=== PATIENT | male | born 1975 | race Caucasian/White ===

== ENCOUNTER 2016-11-28 20:45 | Emergency (ER) | payer BC ==
[2016-11-28 21:11] VITALS: BP 141/65; PULSE 80; RESP 20; TEMP 98.4
--- NOTE | 2016-11-28 21:57 | ED ---
Skin/Abscess/FB HPI - General Chief complaint: Skin/Abscess/Foreign Body Stated complaint: Lump on chest Time Seen by Provider: 11/28/16 21:36 Source: patient, RN notes reviewed Mode of arrival: ambulatory Limitations: no limitations - History of Present Illness Initial comments: 41 yo male presents to the ER with cc of bump to left chest wall. patient states he all of a sudden felt this pain to his chest and then noticed he had a bump to his chest wall. Patient points to it right over his sternum and rib attachemnt. Patient has not noticed this before. Patient states when he touches this point specific area free takes a deep breath he notices some increase discomfort. Patient states that he was concerned due to his pain is without that he should be evaluated patient denies any fever chills cough cold runny nose with this. Patient denies any nausea or vomiting. Patient states she was concerned due to the symptoms were thought that he should be evaluated. Patient denies any recent fever, chills, shortness of breath, chest pain, back pain, abdominal pain, nausea vomiting, numbness or tingling, dysuria or hematuria, constipation or diarrhea, headaches or visual changes, or any other current symptoms. - Related Data Previous Rx's Medication Instructions Recorded Ibuprofen [Motrin] 600 mg PO Q6HR PRN #20 tab 11/28/16 Allergies Allergy/AdvReac Type Severity Reaction Status Date / Time No Known Allergies Allergy Verified 11/28/16 21:11 Review of Systems ROS Statement: Those systems with pertinent positive or pertinent negative responses have been documented in the HPI. ROS Other: All systems not noted in ROS Statement are negative. Past Medical History Past Medical History: No Reported History History of Any Multi-Drug Resistant Organisms: None Reported Past Surgical History: Ear Surgery Past Psychological History: No Psychological Hx Reported Smoking Status: Light tobacco smoker Past Alcohol Use History: Occasional Past Drug Use History: None Reported General Exam Limitations: no limitations General appearance: alert, in no apparent distress Head exam: Present: atraumatic, normocephalic, normal inspection ENT exam: Present: normal exam, mucous membranes moist Neck exam: Present: normal inspection. Absent: tenderness, meningismus, lymphadenopathy Respiratory exam: Present: normal lung sounds bilaterally, chest wall tenderness (Directly over the sternum and costochondral connection in the lower third of the rib cage.). Absent: respiratory distress, wheezes, rales, rhonchi , stridor Cardiovascular Exam: Present: regular rate, normal rhythm, normal heart sounds. Absent: systolic murmur, diastolic murmur, rubs, gallop, clicks GI/Abdominal exam: Present: soft, normal bowel sounds. Absent: distended, tenderness, guarding, rebound, rigid Neurological exam: Present: alert, oriented X3 Psychiatric exam: Present: normal affect, normal mood Skin exam: Present: warm, dry, intact, normal color. Absent: rash Course Vital Signs 11/28/16 21:08 Temperature 98.4 F Pulse Rate 80 Respiratory 20 Rate Blood Pressure 141/65 O2 Sat by Pulse 98 Oximetry Medical Decision Making - Medical Decision Making 41-year-old male presents for chest wall tenderness area that is point tender to touch. At this time x-ray shows no acute process an ultrasound showing a bony prominence for the patient complains of discomfort. This time we discussed most likely costal chondral type pain. We discussed using Motrin as prescribed for pain. We discussed follow-up with his doctor return parameters. Patient stated that he understood and all his questions have been answered. He will be discharged home. - Radiology Data Radiology results: report reviewed, image reviewed Disposition Clinical Impression: Costochondral pain, Sprain of ribs, initial encounter Disposition: HOME SELF-CARE Condition: Stable Instructions: Costochondritis (ED) Additional Instructions: Please use medication as discussed. Please follow up with family doctor if symptoms have not improved over the next two days. Please return to the emergency room if your symptoms increase or worsen or for any other concerns. Prescriptions: Ibuprofen [Motrin] 600 mg PO Q6HR PRN #20 tab PRN Reason: Pain Referrals: None,Stated [Primary Care Provider] - 1-2 days Shadi Dao MD [STAFF PHYSICIAN] - 1-2 days Time of Disposition: 22:35
--- NOTE | 2016-11-28 22:13 | XR ---
EXAMINATION TYPE: XR chest 2V DATE OF EXAM: 11/28/2016 9:54 PM COMPARISON: 02/24/2015 INDICATION: Cough TECHNIQUE: 2 view chest FINDINGS: The heart size is normal. The pulmonary vasculature is normal. The lungs are clear. IMPRESSION: 1. No acute pulmonary process.
--- NOTE | 2016-11-29 00:04 | US ---
EXAM: US Soft Tissue. CLINICAL HISTORY: Reason: Pain TECHNIQUE: Real-time ultrasound of the soft tissue with image documentation. COMPARISON: No relevant prior studies available. FINDINGS: Targeted ultrasound of the area of clinical concern was performed. No solid or cystic mass is seen. No fluid collection is identified. IMPRESSION: Unremarkable targeted ultrasound of the chest wall. Clinical correlation is required to determine the need for further workup with CT imaging.
== END 2016-11-28 22:55 | disposition home or self-care (01) ==
LOC: EC 20:45
DX: S23.41XA Sprain of ribs, initial encounter (principal); R07.1 Chest pain on breathing; F17.200 Nicotine dependence, unspecified, uncomplicated; X58.XXXA Exposure to other specified factors, initial encounter
CPT/HCPCS: 71020; 99284

== ENCOUNTER → 2018-03-16 | Outpatient (CLI) | payer BC, OTHER ==
--- NOTE | 2018-03-16 17:24 | CONS ---
CONSULTATION DATE OF SERVICE: 03/16/2018 A 43-year-old gentleman has been evaluated in sleep center for possible obstructive sleep apnea-hypopnea syndrome. HISTORY OF PRESENT ILLNESS AND SLEEP-WAKE EVALUATION: Patient's usual sleep schedule on working days from around 11:00 p.m. until 5:00 a.m. and on weekends from around 11:00 p.m. until 8:00 a.m. Usually no problems with falling asleep. No TV in bedroom. Patient sleeps with his with severe snoring and witnessed episodes of stopped breathing during the sleep. The patient wakes up from sleep around 3 times with dry mouth, nocturia, sweating, episodes of gasping for air, sleep talking. In the morning, patient wakes up tired, falling asleep during the day, has episodes of irritability. [place] Sleepiness Scale increased significantly to 14. PAST MEDICAL HISTORY: Positive for left ear cholesteatoma treated surgically in 2006. MEDICATIONS: None. SOCIAL HISTORY: Positive for chewing tobacco. Alcohol consumption occasional. FAMILY HISTORY: Hypertension, heart problems, hyperlipidemia, arthritis, emphysema, sleep apnea, snoring, cancer, diabetes. REVIEW OF SYSTEMS: Loud snoring, awakenings from sleep, feeling tiredness during the day. PHYSICAL EXAMINATION: GENERAL A 43-year-old gentleman without distress. VITAL SIGNS BP 125/61, HR 67, RR 18, height 5 feet 11 inches, weight 341.8, BMI 47.6, temperature 97.7, oxygen saturation at room air 92%. HEENT PERRLA, EOMI, evaluation of oropharynx showed tongue protrudes midline, moderately low position of soft palate, wide neck, 20 inches in circumference. Neck Supple, no JVD. Thyroid is not palpable. LUNGS Clear to percussion and to auscultation. Good air exchange. No wheezing or rhonchi. HEART S1, S2 regular. No murmurs, gallops, or rubs. ABDOMEN Obese, soft and nontender. Bowel sounds are present. No organomegaly appreciated. EXTREMITIES No clubbing or cyanosis. PRODUCTION LEADER Awake, alert, and oriented X3. Cranial nerves 2 to 7 intact. There is no fasciculation or atrophy. noted. No focal deficits observed. IMPRESSION: 1. Loud snoring, witnessed episodes of stopped breathing during the sleep, excessive daytime sleepiness. [place] Sleepiness Scale increased to 14. Wide neck, 20 inches in circumference. Obstructive sleep apnea-hypopnea syndrome. 2. Obesity, BMI 47.6. 3. Status post a surgical treatment of cholesteatoma of left ear in 2006. 4. Tobacco chewer. PLAN: 1. Polysomnography for evaluation of patient's breathing during sleep. 2. CPAP/BiPAP titration if sleep study confirms obstructive sleep apnea-hypopnea syndrome. 3. Preferable position during sleep on the side. 4. No driving if patient feels any sleepiness. 5. I will see patient for follow up visit to explain results of testing and following plan. Derek Raman MD, PhD, FAASM Diplomat of [employer] Sand Mixer Machine of [facility] [place] MMODL / IJN: [id number] /
== END | disposition home or self-care (01) ==
LOC: SLEEP 14:26
PROVIDERS: ATTEND Internal Medicine
DX: G47.33 Obstructive sleep apnea (adult) (pediatric) (principal); R35.1 Nocturia; F17.200 Nicotine dependence, unspecified, uncomplicated; E66.9 Obesity, unspecified; Z68.42 Body mass index [BMI] 45.0-49.9, adult; Z98.890 Other specified postprocedural states; Z86.69 Personal history of other diseases of the nervous system and sense organs
CPT/HCPCS: 99211

== ENCOUNTER 2018-04-13 07:19 | Emergency (ER) | payer BC, OTHER ==
[2018-04-13 07:46] VITALS: RESP 18
--- NOTE | 2018-04-13 08:43 | ED ---
ENT HPI - General Chief complaint: ENT Stated complaint: Ear Pain Time Seen by Provider: 04/13/18 08:04 Source: patient, RN notes reviewed, old records reviewed Mode of arrival: ambulatory Limitations: no limitations - History of Present Illness Initial comments: Patient is a 43-year-old male presents emergency room today with 1 day of left- sided ear pain and swelling. Patient reports that he is felt that was a few days ago. He states that he thought that maybe something was in his ear. Patient reports that he feels like his ear swelling and closing off the ear canal. He denies using Q-tips or any other scratching of the ear. He has no trauma to the ear. He reports that he can still hear out of it. He denies any dizziness. He does state that he's had drainage coming from the ear canal. - Related Data Home Medications Medication Instructions Recorded Confirmed Ibuprofen [Motrin] 800 - 1,000 mg PO BID PRN 06/20/17 06/20/17 Previous Rx's Medication Instructions Recorded Ciprofloxacin HCl [Cipro] 500 mg PO Q12HR 7 Days tab 04/13/18 Ofloxacin 0.3% Otic Soln [Floxin 10 drops LEFT EAR BID #1 bottle 04/13/18 0.3% Otic Soln] methylPREDNISolone Dose Pack 4 mg PO DIRECTED #21 package 04/13/18 [Medrol Dose Pack] Allergies Allergy/AdvReac Type Severity Reaction Status Date / Time No Known Allergies Allergy Verified 04/13/18 07:44 Review of Systems ROS Statement: Those systems with pertinent positive or pertinent negative responses have been documented in the HPI. ROS Other: All systems not noted in ROS Statement are negative. Past Medical History Past Medical History: Pneumonia Additional Past Medical History / Comment(s): pneumonia as a kid History of Any Multi-Drug Resistant Organisms: None Reported Past Surgical History: Ear Surgery Past Anesthesia/Blood Transfusion Reactions: No Reported Reaction Past Psychological History: No Psychological Hx Reported Smoking Status: Light tobacco smoker Past Alcohol Use History: Occasional Past Drug Use History: None Reported - Past Family History Father Family Medical History: COPD Mother Family Medical History: Congestive Heart Failure (CHF), Coronary Artery Disease (CAD) Brother(s) Family Medical History: No Reported History Sister(s) Family Medical History: No Reported History Son(s) Family Medical History: No Reported History Daughter(s) Family Medical History: No Reported History General Exam - General Exam Comments Initial Comments: 43-year-old male. Alert and oriented. No significant distress. Limitations: no limitations General appearance: alert Head exam: Present: atraumatic, normocephalic, normal inspection Eye exam: Present: normal appearance, PERRL, EOMI. Absent: scleral icterus, conjunctival injection, periorbital swelling ENT exam: Present: normal exam, mucous membranes moist. Absent: TM's normal bilaterally (Patient has evidence of drainage from the left TM. Unable to visualize the total TM. Patient has evidence of otitis externa with swelling around the external ear canal. The pinna swollen and erythematous.) Neck exam: Present: normal inspection. Absent: tenderness, meningismus, lymphadenopathy Respiratory exam: Present: normal lung sounds bilaterally. Absent: respiratory distress, wheezes, rales, rhonchi, stridor Cardiovascular Exam: Present: regular rate, normal rhythm, normal heart sounds. Absent: systolic murmur, diastolic murmur, rubs, gallop, clicks GI/Abdominal exam: Present: soft, normal bowel sounds. Absent: distended, tenderness, guarding, rebound, rigid Extremities exam: Present: normal inspection, full ROM, normal capillary refill. Absent: tenderness, pedal edema, joint swelling, calf tenderness Back exam: Present: normal inspection Neurological exam: Present: alert, oriented X3, CN II-XII intact Psychiatric exam: Present: normal affect, normal mood Skin exam: Present: warm, dry, intact, normal color. Absent: rash Course Vital Signs 04/13/18 07:44 Temperature 98.3 F Pulse Rate 67 Respiratory 18 Rate Blood Pressure 144/81 O2 Sat by Pulse 97 Oximetry Medical Decision Making - Medical Decision Making Patient is a 43-year-old male presents emergency department today with left ear pain and swelling. He does have some drainage coming from the ear. Unable to visualize the TM at this time due to drainage from the ear canal. I will start the Patient on medications for otitis externa. Given antibiotic drops, will discharge Patient with steroid and antibiotic. Discussed close follow-up with primary care physician. All questions answered return parameters were discussed. Given a referral for ENT. Disposition Clinical Impression: Otitis externa Disposition: HOME SELF-CARE Condition: Good Instructions: Otitis Externa (ED) Additional Instructions: Patient advised to take the antibiotics and use the drops as prescribed. Return to emergency department if any alarming signs or symptoms occur. Follow- up with her nose and throat specialist. Prescriptions: Ciprofloxacin HCl [Cipro] 500 mg PO Q12HR 7 Days tab methylPREDNISolone Dose Pack [Medrol Dose Pack] 4 mg PO DIRECTED #21 package Ofloxacin 0.3% Otic Soln [Floxin 0.3% Otic Soln] 10 drops LEFT EAR BID #1 bottle Is patient prescribed a controlled substance at d/c from ED?: No Referrals: Markie Moore DO [Primary Care Provider] - 1-2 days Glen Scott MD [STAFF PHYSICIAN] - 1-2 days Time of Disposition: 08:41
[2018-04-13 08:48] VITALS: BP 127/62; PULSE 64; TEMP 98.2
== END 2018-04-13 08:49 | disposition home or self-care (01) ==
LOC: EC 07:19
DX: H60.92 Unspecified otitis externa, left ear (principal); F17.200 Nicotine dependence, unspecified, uncomplicated
CPT/HCPCS: 99283

== ENCOUNTER → 2018-07-28 | Outpatient (CLI) | payer BC, OTHER ==
--- NOTE | 2018-07-28 17:45 | PN ---
PROGRESS NOTE DATE OF SERVICE: 07/28/2018 43-year-old gentleman who has been followed in Sleep Center for treatment of obstructive sleep apnea-hypopnea syndrome. Recently patient had home sleep apnea test which showed the patient had extremely severe obstructive sleep apnea-hypopnea syndrome with apnea-hypopnea index 86.2 with oxygen desaturation to 67%. After that, the patient was started on treatment with CPAP and today is his first visit while he is using CPAP. The patient is able to use CPAP equipment every night for the whole night without any significant problems related to mask fitting, pressure or humidification. I checked his CPAP unit. It is in automatic regimen. Pressure range 5-20 cm of water. Average pressure is 10.8 cm of water. Usage is 100% of the nights more than 4 hours. Average usage is 8.3 hours. Leak is 26 L/minute which is acceptable. Apnea-hypopnea index is only 1.4, which is absolutely normal range. [place] Sleepiness Scale today is 7. MEDICATIONS: None. PHYSICAL EXAM: Patient in no distress. BP 138/85, HR 64, RR 16, weight 351 pounds, temperature 98.1. Oxygen saturation at room air 94%. Oropharynx extremely low position of soft palate. Neck Supple, no JVD. Thyroid is not palpable. LUNGS Clear to percussion and to auscultation. Good air exchange. No wheezing or rhonchi. HEART S1, S2 regular. No murmurs, gallops, or rubs. ABDOMEN: Obese. Soft and nontender. Bowel sounds are present. No organomegaly appreciated. EXTREMITIES No clubbing or cyanosis. NURSE SUBSTANCE ABUSE Awake, alert, and oriented X3. Cranial nerves 2 to 7 intact. There is no fasciculation or atrophy. noted. No focal deficits observed. IMPRESSION: 1. Extremely severe obstructive sleep apnea-hypopnea syndrome. Apnea-hypopnea index 86.2 with oxygen desaturation to 67% by results of home sleep apnea test on control with auto PAP by results of reading from the machine. The patient demonstrated 100% compliance with treatment, benefitting from treatment. Does not complain on excessive daytime sleepiness. [place] Sleepiness Scale is in normal range. 2. Obesity. 3. Status post surgery for of the left ear in the past. 4. Tobacco chewer. 5. 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 He sleeps at home every night. PLAN: 1. Patient will continue to use CPAP equipment every night for the whole night. 2. Aggressive losing weight program. 3. We will maintain all necessary prescriptions for CPAP supplies including mask, tube, filters. 4. Precautions related to driving. No driving if feeling sleepiness. Presently patient does not complain of any sleepiness and demonstrated great compliance with treatment. He is aware about civil and criminal liability for unsafe driving. 5. Sleep hygiene with regular time in bed for 8 hours. Thank you very much for allowing me to participate in management of your patient. Sincerely, Derek Raman MD, PhD, FAASM Diplomat of [place] [employer] Windows Administrator of [facility] [place] MMODL / IJN: [id number] /
== END ==
LOC: SLEEP 15:02
PROVIDERS: ATTEND Internal Medicine
DX: G47.33 Obstructive sleep apnea (adult) (pediatric) (principal); E66.9 Obesity, unspecified; F17.220 Nicotine dependence, chewing tobacco, uncomplicated; Z99.89 Dependence on other enabling machines and devices

== ENCOUNTER → 2019-09-07 | Outpatient (CLI) | payer BC, OTHER ==
--- NOTE | 2019-09-07 11:45 | SFUN ---
SLEEP CENTER FOLLOW UP NOTE DATE OF SERVICE: 09/07/2019 This 44-year-old gentleman has been followed in sleep center for treatment of extremely severe obstructive sleep apnea-hypopnea syndrome. Patient continued to use CPAP equipment every night for the whole night. Sleeps well with the machine, feels well during the day. [place] Sleepiness Scale today is 6, which is normal. I checked CPAP unit, range of the pressure 5 to 20 with average pressure 11.1. I checked the usage for the whole year. The patient uses 364 nights out of 365 nights and 362 nights out of 365 nights were more than 4 hours with average usage is 7.4 hours per night, which is absolutely great compliance. Leak is borderline 24 L/minute. Apnea-hypopnea index reading for the whole year is 1.5, which is absolutely normal. MEDICATIONS: None. PHYSICAL EXAMINATION: During physical exam, patient in no distress. VITAL SIGNS: BP 140/84, HR 69, temperature 98.7, oxygen saturation at room air 93%, RR 16. HEENT: PERRLA, EOMI. The oropharynx low position of soft palate, Mallampati 3-4. NECK: Supple, no JVD. Thyroid is not palpable. LUNGS: Clear to percussion and to auscultation. Good air exchange. No wheezing or rhonchi. HEART: S1, S2 regular. No murmurs, gallops, or rubs. ABDOMEN: Obese. EXTREMITIES: No clubbing or cyanosis. BUSINESS LIAISON OFFICER: Awake, alert, and oriented X3. Cranial nerves 2 to 7 intact. There is no fasciculation or atrophy. noted. No focal deficits observed. IMPRESSION: 1. Severe obstructive sleep apnea-hypopnea syndrome with apnea-hypopnea index by results of sleep study at home 86.2 with oxygen desaturation to 67%. The patient demonstrated 100% compliance with treatment. Normal respiration on treatment. Normal [place] Sleepiness Scale. 2. Obesity. Weight 11 pounds down than one year ago. 3. Status post surgical on left ear for infection in childhood. 4. Tobacco chewer. 5. 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 PLAN: 1. Patient will continue to use CPAP equipment every night for the whole night like he did for the whole previous year. 2. Patient may continue to drive truck with precautions. No driving if feeling sleepiness. He is aware about civil and criminal liability for unsafe driving. 3. Continue losing weight. 4. Sleep hygiene with regular time in bed for at least 7-1/2 hours. 5. We will maintain all necessary CPAP prescriptions for CPAP supplies including mask, tube, filters. 6. Patient will try to use a full-face mask. Presently, he is using a nasal mask. Thank you very much for allowing me to participate in management of your patient. Sincerely, Derek Raman MD, PhD, FAASM Diplomat of [employer] Fleet Maintenance Manager of [facility] [place] MMODL / IJN: [id number] /
== END | disposition home or self-care (01) ==
LOC: SLEEP 10:30
PROVIDERS: ATTEND Internal Medicine
DX: G47.33 Obstructive sleep apnea (adult) (pediatric) (principal); E66.9 Obesity, unspecified; F17.200 Nicotine dependence, unspecified, uncomplicated; Z98.890 Other specified postprocedural states

== ENCOUNTER → 2021-07-23 | Outpatient (CLI) | payer BC, OTHER ==
--- NOTE | 2021-07-23 20:40 | SFUN ---
SLEEP CENTER FOLLOW UP NOTE DATE OF SERVICE: 07/23/2021 46-year-old gentleman who has been followed in Sleep Center for treatment of obstructive sleep apnea-hypopnea syndrome. Last time I saw patient about one year ago patient continues to use his CPAP equipment every night for the whole night. He cannot sleep without machine. Does not snore with the machine. [place] Sleepiness Scale today is 9. I checked his CPAP unit. Range of the pressure 5-20. Usage is 30/30 nights for more than 4 hours for the last month and 365/365 nights more than 4 hours for the last year. Average chair usage 7.3 hours per night for the last year. Leak is 23 L/minute, which is borderline. Apnea-hypopnea index is 1.1 which is absolutely normal. Air filter is in average condition, needs to be replaced soon. MEDICATIONS: Over the counter medication for sinus problem. Patient did not indicate the name of medication. PHYSICAL EXAMINATION: GENERAL: Patient in no distress. BP 169/84 on right arm and 173/84, left arm, HR 80, RR 15, height 5 feet 10-3/4 inches, weight 344 pounds, body mass index 48.3. Oropharynx: Low position of soft palate, Mallampati 3-4. NECK: Supple, no JVD. Thyroid is not palpable. LUNGS: Clear to percussion and to auscultation. Good air exchange. No wheezing or rhonchi. HEART: S1, S2 regular. No murmurs, gallops, or rubs. ABDOMEN: Obese. Soft and nontender. Bowel sounds are present. No organomegaly appreciated. EXTREMITIES: No clubbing or cyanosis. UNIFORM PATROL POLICE OFFICER: Awake, alert, and oriented X3. Cranial nerves 2 to 7 intact. There is no fasciculation or atrophy. noted. No focal deficits observed. IMPRESSION: 1. Severe obstructive sleep apnea-hypopnea syndrome, original AHI 86.2 with oxygen desaturation to 67%. The patient demonstrated 100% compliance with treatment. Normal respiration on treatment. 2. Obesity. Body mass index 48.3. 3. Tobacco chewer. 4. Status post surgery on left ear for infection in childhood. 5. The patient is a rear load truck driver locally. PLAN: 1. Patient will continue to use PAP equipment every night for the whole night. 2. Sleep hygiene with regular time in bed for at least 7-1/2 to 8 hours. 3. Precautions related to driving. No driving if feeling sleepiness. 4. I will maintain all necessary prescription for PAP supplies including mask, tube, filters. 5. Watching weight. 6. Follow-up visit in 6 months or earlier if patient has any problems. Thank you very much for allowing me to participate in the management of your patient. Sincerely, Derek Raman MD, PhD, FAASM Diplomat of [employer] [employer] Sleep Medicine Board of [place] [employer] Hot Dimpling Machine Operator of [facility] [place] MMODL / DEENAN: [id number] /
== END ==
LOC: SLEEP 09:59
PROVIDERS: ATTEND Internal Medicine
DX: G47.33 Obstructive sleep apnea (adult) (pediatric) (principal); G47.36 Sleep related hypoventilation in conditions classified elsewhere; E66.9 Obesity, unspecified; F17.220 Nicotine dependence, chewing tobacco, uncomplicated; Z68.42 Body mass index [BMI] 45.0-49.9, adult; Z98.890 Other specified postprocedural states; Z99.89 Dependence on other enabling machines and devices

== ENCOUNTER → 2023-12-02 | Outpatient (CLI) | payer BC ==
--- NOTE | 2023-12-03 11:41 | CA ---
Transthoracic Echo Report Name: Nilesh Bueno Age: 48 Gender: M : 1975 Exam Date: 12/02/2023 13:44 Exam Location: [facility] Ht (in): 71 Wt (lb): 357 Ordering Physician: Markie Moore DO Attending/Referring Phys: Breanne Luo PAC Preparation Room Manager [place] RDCS Procedure CPT: Indications: [id number] edema Cardiac Hx: Technical Quality: Technically difficult study Contrast 1: Definity Total Dose (mL): 2 Contrast 2: Total Dose (mL): MEASUREMENTS (Male / Female) Normal Values 2D ECHO LV Diastolic Diameter PLAX 4.5 cm 4.2 - 5.9 / 3.9 - 5.3 cm LV Systolic Diameter PLAX 2.6 cm IVS Diastolic Thickness 1.4 cm 0.6 - 1.0 / 0.6 - 0.9 cm LVPW Diastolic Thickness 1.5 cm 0.6 - 1.0 / 0.6 - 0.9 cm LV Relative Wall Thickness 0.7 RV Internal Dim ED PLAX 2.5 cm LA Systolic Diameter LX 3.5 cm 3.0 - 4.0 / 2.7 - 3.8 cm LV Diastolic Volume MOD BP 128.1 cm??? 67 - 155 / 56 - 104 cm??? LV Systolic Volume MOD BP 52.7 cm??? 22 - 58 / 19 - 49 cm??? LV Ejection Fraction MOD BP 58.9 % >= 55 % LV Diastolic Volume MOD 4C 97.4 cm??? LV Systolic Volume MOD 4C 34.9 cm??? LV Ejection Fraction MOD 4C 64.1 % LV Diastolic Length 4C 7.9 cm LV Systolic Length 4C 6.4 cm LV Diastolic Volume MOD 2C 144.1 cm??? LV Systolic Volume MOD 2C 65.5 cm??? LV Ejection Fraction MOD 2C 54.5 % LV Diastolic Length 2C 9.3 cm LV Systolic Length 2C 7.8 cm M-MODE Aortic Root Diameter MM 4.1 cm LA Systolic Diameter MM 3.8 cm LA Ao Ratio MM 0.9 AV Cusp Separation MM 2.5 cm DOPPLER AV Peak Velocity 143.7 cm/s AV Peak Gradient 8.3 mmHg Mitral E Point Velocity 91.0 cm/s Mitral A Point Velocity 84.8 cm/s Mitral E to A Ratio 1.1 MV Deceleration Time 317.2 ms MV E' Velocity 7.1 cm/s Mitral E to MV E' Ratio 12.8 TR Peak Velocity 127.4 cm/s TR Peak Gradient 6.5 mmHg Right Ventricular Systolic Press 16.5 mmHg FINDINGS Left Ventricle Left ventricular ejection fraction is estimated at 55-60 %. Moderately increased septal wall thickness. Left ventricular cavity size normal. Normal left ventricular systolic function Right Ventricle Mild right ventricular dilatation. Right ventricular systolic pressure within normal limits. Right Atrium Normal right atrial size. Left Atrium Normal left atrial size. Mitral Valve Structurally normal mitral valve. Trace to mild mitral regurgitation. Aortic Valve Trileaflet aortic valve. No aortic valve stenosis or regurgitation. Tricuspid Valve Structurally normal tricuspid valve. Trace to mild tricuspid regurgitation. Pulmonic Valve Structurally normal pulmonic valve. No pulmonic stenosis. No pulmonic regurgitation. Pericardium No pericardial or pleural effusion. Aorta Mild aortic dilatation at the level of the sinuses of valsalva (root) 4.1cm CONCLUSIONS Normal LV systolic function Previewed by: Dr. Benson Vieira MD (Electronically Signed) Final Date: 03 Dec 2023 11:40
== END | disposition home or self-care (01) ==
LOC: RADECHMAIN 13:15
PROVIDERS: ATTEND Family Medicine
DX: R06.02 Shortness of breath (principal); R60.9 Edema, unspecified
CPT/HCPCS: 93306